=== PATIENT | female | born 2000 | race Caucasian/White ===

== ENCOUNTER 2019-03-22 23:25 | Emergency (ER) | payer SELFPAY ==
[~2019-03-22] VITALS: Ht 154.9 cm; Wt 68.0 kg
[2019-03-22 23:30] VITALS: BP 118/65
--- NOTE | 2019-03-22 23:33 | NUR ---
TO BED # 02 AMBULATORY
--- NOTE | 2019-03-22 23:45 | NUR ---
19/F PRESENTS TO ED WITH FAMILY/FRIEND, C/O COUGH WITH INTERMITTENT PLEGM X1.5 WEEKS. REPORTS INTERMITTENT NAUSEA, DENIES VOMITING. DENIES FEVER/CHILLS. PT AWAKE AND ALERT, SKIN NORMAL COLOR WARM AND DRY, RR EVEN AND UNLABORED. DENIES MED HX, RX OR OTC.
[2019-03-23 00:37] VITALS: BP 115/62
--- NOTE | 2019-03-23 00:39 | NUR ---
Patient discharged with v/s stable. Written and verbal after care instructions given and explained. Patient alert, oriented and verbalized understanding of instructions. Ambulatory with steady gait. All questions addressed prior to discharge. ID band removed. Patient advised to follow up with PMD. Rx of PROMETHAZINE, NAPROXEN given. Patient educated on indication of medication including possible reaction and side effects. Opportunity to ask questions provided and answered.
== END 2019-03-23 00:39 | disposition home or self-care (01) ==
LOC: MED 23:25
DX: J40 Bronchitis, not specified as acute or chronic (principal)
CPT/HCPCS: 87804; 99283

== ENCOUNTER 2020-01-04 20:33 | Emergency (ER) | payer MEDICAID ==
[~2020-01-04] VITALS: Ht 154.9 cm; Wt 67.6 kg
[2020-01-04 20:39] VITALS: BP 132/93
--- NOTE | 2020-01-04 20:43 | NUR ---
PT AMBULATED TO BED 4 WITH STEADY GAIT
--- NOTE | 2020-01-04 21:07 | NUR ---
19 Y/O F PRESENTS TO ED C/O "STOMACH PROBLEMS." PT STATES THAT SHE WENT TO [place] "A FEW MONTHS BACK" AND WAS DIAGNOSED WITH "STOMACH INFECTION" AND WAS PRESCRIBED 2 MEDICATIONS THAT PT CAN'T REMEMBER THE NAME. PT STATES THAT THE MEDICATIONS HELPED A LITTLE BIT BUT THEN SYMPTOMS CAME BACK A FEW WEEKS AGO. PT DENIES ANY PAIN AT THIS TIME. PT ALSO STATES THAT SHE HAS BEEN EXPERIENCING CONSTIPATION AND HAS NOTICED THAT HER BOWEL MOVEMENT HAS MUCOUS. LAST BOWEL MOVEMENT TODAY. ABD SOFT AND NON TENDER. RR EVEN AND UNLABORED. LUNG SOUNDS CLEAR UPON AUSCULTATION. MHX: "STOMACH INFECTION" NKA
--- NOTE | 2020-01-04 21:16 | NUR ---
DR. DUTTA AT BEDSIDE EVALUATING PT.
[2020-01-04 22:25] VITALS: BP 126/91
--- NOTE | 2020-01-04 22:26 | NUR ---
Patient discharged with v/s stable. Written and verbal after care instructions given and explained. Patient alert, oriented and verbalized understanding of instructions. Ambulatory with steady gait. All questions addressed prior to discharge. ID band removed. Patient advised to follow up with PMD. Rx of FLAGYL AND AZITHROMYCIN given. Patient educated on indication of medication including possible reaction and side effects. Opportunity to ask questions provided and answered.
== END 2020-01-04 22:25 | disposition home or self-care (01) ==
LOC: MED 20:33
DX: T75.3XXA Motion sickness, initial encounter (principal); R10.13 Epigastric pain
CPT/HCPCS: 81025; 99283